=== PATIENT | female | born 1985 | race Caucasian/White ===

== ENCOUNTER 2021-12-02 11:21 | Emergency (ER) | payer OTHER ==
[2021-12-02] MEDS ORDERED: BUPIVACAINE 0.5% PF 10 ML VIAL IM ONE (11:40)
[2021-12-02] MEDS ORDERED: TRIAMCINOLONE 40 MG/ML VIAL IM STA (11:40)
[2021-12-02] MEDS ORDERED: ONDANSETRON ODT 4 MG TABLET TL STA (11:40)
[2021-12-02] MEDS ORDERED: HYDROmorphone 1 MG/ML CARPUJECT IM STA (11:40)
--- NOTE | 2021-12-02 11:42 | ED Physician Documentation ---
PD HPI BACK PAIN - Stated complaint Stated Complaint: BACK PAIN - Chief complaint Chief Complaint: Back Pain - History obtained from History obtained from: Patient - Additional information Additional information: 36-year-old woman with no known history of back issues. She is a well- controlled asthmatic, otherwise healthy. About 2 weeks ago without specific injury she developed severe left lower back pain radiating into the groin and leg. She has a sensation of numbness in the upper leg. There is no associated weakness, numbness, tingling other than that. She is had some spasming in the leg. Denies saddle anesthesia or incontinence. No fevers or drug use. Review of Systems Constitutional: denies: Fever, Chills GI: denies: Abdominal Pain, Nausea, Vomiting, Diarrhea : denies: Dysuria, Frequency, Hesitancy, Incontinent PD PAST MEDICAL HISTORY - Present Medications Home Medications: Ambulatory Orders Medication Instructions Recorded Confirmed Oxycodone HCl/Acetaminophen 1 - 2 each PO Q6H PRN #20 tablet 12/02/21 [Percocet 5-325 mg Tablet] predniSONE [Deltasone] 20 mg PO [id number] #21 tab 12/02/21 - Allergies Allergies/Adverse Reactions: Allergies Allergy/AdvReac Type Severity Reaction Status Date / Time cold and flu medications Allergy Anaphylaxis Uncoded 12/02/21 11:33 PD ED PE NORMAL - Vitals Vital signs reviewed: Yes - General General: Alert and oriented X 3, Other (Comfortable at rest but winces with movement.) - Cardiac Cardiac: RRR, No murmur - Respiratory Respiratory: No respiratory distress, Clear bilaterally - Abdomen Abdomen: Normal bowel sounds, Soft, Non tender - Back Back: No CVA TTP, Other (There is a reproducible area in the left low back of pain without overlying rash. It is just above the sciatic notch on the left.) - Extremities Extremities: Other (The patient has equal and normal Achilles and patellar reflexes bilaterally. Normal sensation in all areas of the legs. Patient denies saddle anesthesia. Normal strength in flexion-extension at the ankles, knees, and flexion of the hips.) - Neuro Neuro: Alert and oriented X 3, Normal speech Results - Vitals Vitals: Vital Signs - 24 hr 12/02/21 12/02/21 11:24 12:59 Temperature 36.4 C L Heart Rate 64 57 L Respiratory 16 20 Rate Blood Pressure 135/69 H 119/72 O2 Saturation 99 100 Oxygen O2 Source Room air Procedures - General procedure General procedure: Procedure note: Trigger point injection After discussion and verbal consent trigger point injection was done with 9 mL of 0.5% Marcaine and 40 mg / 1 mL of triamcinolone into the most symptomatic portion in the right sciatic notch area. PD MEDICAL DECISION MAKING - ED course ED course: This patient has seemingly uncomplicated musculoskeletal back pain. The patient has no "red flags." Specifically denies IV drug use, fevers, incontinence, saddle anesthesia. Spinal epidural abscess was considered, given that the patient has no fever, is not diabetic, has no spinal tenderness, does not use IV drugs, and has no bilateral neurologic symptoms, the diagnosis of spinal epidural abscess is considered exceedingly unlikely. After the administration of a trigger point injection and 2 mg of Dilaudid IM she was feeling much better and much more functional. Discussed the need for follow-up and physical therapy as well as expected course and return precautions. Departure - Departure Disposition: Home, Self Care Clinical Impression: Back pain Condition: Good Record reviewed to determine appropriate education?: Yes Instructions: ED Low Back Pain Injury Prescriptions: predniSONE [Deltasone] 20 mg PO [id number] #21 tab Oxycodone HCl/Acetaminophen [Percocet 5-325 mg Tablet] 1 - 2 each PO Q6H PRN #20 tablet PRN Reason: pain Comments: Prescriptions sent electronically to [facility] in [place]. Talk with your doctor tomorrow, consider physical therapy referral. Return if worse. I am prescribing a short course of narcotic pain medication for you. These are potentially dangerous and addictive medications that should be used carefully. These medications may constipate you. Take an [id number] stool softener (docusate) twice daily with plenty of water while taking these medications. If you go 24 hours without a bowel movement, take [id number] miralax, per package instructions. Do not drink or drive while taking these medications. If you received narcotic or sedating medications while in the emergency department, do not drive for 24 hours. Store this medication in a safe, secure place and out of reach of children. It is a violation of federal law to give or sell this medication to another person or to use in a manner other than prescribed. The ED will not refill narcotic prescriptions, including prescriptions lost or stolen. To dispose of unwanted medications: 1. [facility] at [address] in [place] has a medication drop box. They accept prescription medications (in pill form) Friday through Friday 9:00 a.m. to 5:00 p.m. 2. [facility] accepts prescription medications (in pill form only) for disposal year round. Call for more information. 3. Contact the [facility] for the next [facility] sponsored prescription drug collection event. , [phone], or [phone]; Note that many narcotic pain relievers also contain Tylenol/acetaminophen. Please ensure that your total dose of acetaminophen from all sources does not exceed 3 g (3000 mg) per day. Forms: Activity restrictions Discharge Date/Time: 12/02/21 13:04
[2021-12-02 12:59] VITALS: BP 119/72
== END 2021-12-02 13:04 | disposition home or self-care (01) ==
LOC: ED 11:21
DX: M54.50 Low back pain, unspecified (principal)
CPT/HCPCS: 20552; 96372; 99282; 99283; J1170; Q0162